=== PATIENT | male | born 1960 | race Caucasian/White ===

== ENCOUNTER 2023-07-23 18:44 | Emergency (ER) | payer MEDICARE, MEDICAID ==
[~2023-07-23] VITALS: Ht 172.7 cm; Wt 65.0 kg
[~2023-07-23 18:44] MED LIST: NO HOME MEDS
[2023-07-23 19:58] LABS: EOSINOPHILS # (AUTO) 0.1 X10'3 (0-0.9); HEMOGLOBIN 7.4 g/dl (14.0-17.9); LYMPHOCYTES # (AUTO) 1.1 X10'3 (1.1-4.8); MEAN CORPUSCULAR HGB CONC 31.4 g/dL (33.0-36.5); MEAN PLATELET VOLUME 9.8 FL (7.4-10.4); MONOCYTES # (AUTO) 1.3 X10'3 (0-0.9); NEUTROPHILS # (AUTO) 11.4 X10'3 (1.8-7.7)
[2023-07-23 20:01] LABS: BASOPHILS % (AUTO) 0.3 % (0-1); EOSINOPHILS % (AUTO) 0.5 % (0-6); HEMATOCRIT 23.6 % (42.0-52.0); LYMPHOCYTES % (AUTO) 7.6 % (21-51); MEAN CORPUSCULAR HEMOGLOBIN 23.9 PG (27.0-31.0); MONOCYTES % (AUTO) 9.2 % (2-12); NEUTROPHILS % (AUTO) 82.4 % (42-75); PLATELET COUNT 189 X10'3 (140-440); RED CELL DISTRIBUTION WIDTH 17.2 % (11.5-14.5); WHITE BLOOD COUNT 13.8 X10'3 (4.5-11.0)
[2023-07-23 20:07] LABS: ALBUMIN 2.9 G/DL (3.4-5.0); BLOOD UREA NITROGEN 25 MG/DL (7-18); BUN/CREATININE RATIO 16.9 (10.0-20.0); CALCIUM 8.2 MG/DL (8.5-10.1); CREATININE 1.48 MG/DL (0.60-1.10); GLUCOSE 112 MG/DL (70-104); TOTAL CARBON DIOXIDE 28.4 MMOL/L (24-32); eCRCL 48 ML/MIN; eGFR 48 ML/MIN
[2023-07-23 20:16] LABS: ANION GAP 11 (8-16); CHLORIDE 101 MMOL/L (99-107); SODIUM 140 MMOL/L (135-145)
[2023-07-23] MEDS ORDERED: CEPH-585 PO (23:09)
[2023-07-23] MEDS ORDERED: IBUP-1984 PO (23:09)
[2023-07-23] MEDS ORDERED: SULF1TAB49 PO (23:09)
[2023-07-23] MEDS: sulfamethoxazole/trimethoprim DS (800/160mg) tablet PO ONE (23:16)
[2023-07-23] MEDS: cephalexin 500mg capsule PO ONE (23:17)
[2023-07-23] MEDS: TETanus/Pertussis (Acell)/Diphther VAC/PF (Tdap-Adult) 0.5ml syringe IMVAC ONE (23:21)
[2023-07-24 00:09] VITALS: BP 144/80; PULSE 89; RESP 18; TEMP 98.6; O2SAT 96
== END 2023-07-24 00:11 | disposition home or self-care (01) ==
LOC: ER 18:45
DX: L03.011 Cellulitis of right finger (principal); F12.10 Cannabis abuse, uncomplicated; F15.10 Other stimulant abuse, uncomplicated; Z79.899 Other long term (current) drug therapy
CPT/HCPCS: 36415; 73130; 80048; 83605; 84145; 85025; 87040; 90471; 90715; 99284

== ENCOUNTER 2023-11-24 11:28 | Emergency (ER) | payer MEDICARE, MEDICAID ==
[~2023-11-24] VITALS: Ht 170.2 cm; Wt 63.6 kg
[~2023-11-24 11:28] MED LIST changes: +CEPH-585 PO
[2023-11-24 12:00] VITALS: TEMP 98.6
[2023-11-24] MEDS: normal saline 1000ML IV soln IV ONE (12:21)
[2023-11-24 12:45] LABS: BASOPHILS % (AUTO) 0.1 % (0-1); EOSINOPHILS % (AUTO) 0.1 % (0-6); HEMATOCRIT 35.4 % (42.0-52.0); HEMOGLOBIN 10.8 g/dl (14.0-17.9); LYMPHOCYTES # (AUTO) 0.9 X10'3 (1.1-4.8); LYMPHOCYTES % (AUTO) 6.6 % (21-51); MEAN CORPUSCULAR HEMOGLOBIN 20.7 PG (27.0-31.0); MEAN CORPUSCULAR HGB CONC 30.6 g/dL (33.0-36.5); MEAN CORPUSCULAR VOLUME 67.7 FL (78-98); MEAN PLATELET VOLUME 9.5 FL (7.4-10.4); MONOCYTES # (AUTO) 0.7 X10'3 (0-0.9); NEUTROPHILS # (AUTO) 11.6 X10'3 (1.8-7.7); NEUTROPHILS % (AUTO) 88.2 % (42-75); PLATELET COUNT 303 X10'3 (140-440); RED BLOOD COUNT 5.23 X10'6 (4.70-6.10); RED CELL DISTRIBUTION WIDTH 19.8 % (11.5-14.5); WHITE BLOOD COUNT 13.1 X10'3 (4.5-11.0)
[2023-11-24 13:00] VITALS: BP 200/110; PULSE 69; RESP 12; O2SAT 93
[2023-11-24 13:05] LABS: ALBUMIN 3.5 G/DL (3.4-5.0); ANION GAP 9 (8-16); BLOOD UREA NITROGEN 23 MG/DL (7-18); BUN/CREATININE RATIO 11.1 (10.0-20.0); CALCIUM 9.8 MG/DL (8.5-10.1); CHLORIDE 97 MMOL/L (99-107); CREATININE 2.07 MG/DL (0.60-1.10); GLUCOSE 137 MG/DL (70-104); MAGNESIUM 2.3 MG/DL (1.5-2.4); POTASSIUM 4.5 MMOL/L (3.5-5.1); PRO BRAIN NATRIURETIC PEPTIDE 709 PG/ML (0-125); SODIUM 136 MMOL/L (135-145); TOTAL CARBON DIOXIDE 29.6 MMOL/L (24-32); eCRCL 33 ML/MIN; eGFR 33 ML/MIN
[2023-11-24 13:09] LABS: ANISOCYTOSIS 2+; MICROCYTOSIS 2+; PLATELET ESTIMATE NORMAL
[2023-11-24 13:11] LABS: STOMATOCYTES FEW
[2023-11-24 13:12] LABS: POLYCHROMASIA FEW
[2023-11-24] MEDS ORDERED: ondansetron/PF 4mg/2ml inj IV ONE (14:05)
[2023-11-24] MEDS ORDERED: pantoprazole 40 MG vial IV STA (14:05)
[2023-11-24] MEDS ORDERED: normal saline 1000ML IV soln IVB ONE (14:05)
== END 2023-11-24 14:30 | disposition left against medical advice (07) ==
LOC: ER 11:28
DX: K92.2 Gastrointestinal hemorrhage, unspecified (principal); E86.0 Dehydration; R53.1 Weakness; F12.90 Cannabis use, unspecified, uncomplicated; F15.90 Other stimulant use, unspecified, uncomplicated; F17.210 Nicotine dependence, cigarettes, uncomplicated; Z79.2 Long term (current) use of antibiotics
CPT/HCPCS: 71045; 80048; 83735; 83880; 84145; 84484; 85008; 85025; 93005; 96360; 99285; J7030